=== PATIENT | female | born 1990 | race Caucasian/White ===

== ENCOUNTER 2020-04-16 06:07 | Inpatient (IN) | payer MEDICAID ==
[~2020-04-16] VITALS: Ht 152.4 cm; Wt 58.1 kg
[2020-04-16] MEDS ORDERED: D5%-LACTATED RINGERS 1,000 ML IV SCH (06:11)
[2020-04-16] MEDS ORDERED: OXYTOCIN 30U/ 0.9% NaCL 500ML 500 ML IV PRN (06:11)
[2020-04-16] MEDS ORDERED: OXYTOCIN 30U/ 0.9% NaCL 500ML 500 ML IV ONE (06:11)
[2020-04-16 06:17] VITALS: BP 95/51
[2020-04-16] MEDS ORDERED: NEWBORN KIT ONE (06:23)
[2020-04-16] MEDS ORDERED: PREN-3 PO (06:28)
[2020-04-16] MEDS ORDERED: IRON1TAB60 PO (06:29)
[2020-04-16] MEDS ORDERED: TERBUTALINE 1 MG/ML, 1ML IVPush PRN (06:30)
[2020-04-16] MEDS ORDERED: ONDANSETRON 2MG/ML, 2ML IVPush PRN (06:30)
[2020-04-16] MEDS ORDERED: TERBUTALINE 1 MG/ML, 1ML SQ PRN (06:30)
[2020-04-16] MEDS ORDERED: FENTANYL PF 100 MCG/2ML IVPush PRN (06:30)
[2020-04-16] MEDS ORDERED: FENTANYL PF 100 MCG/2ML IV PRN (06:30)
[2020-04-16] MEDS ORDERED: ALUMINUM/MAG/SIMETHICONE 30 ML UDC PO PRN (06:30)
[2020-04-16 06:40] LABS: BASOPHILS # (AUTO) 0.05 x10^3/uL (0-0.1); BASOPHILS % (AUTO) 1 % (0-1); EOSINOPHILS # (AUTO) 0.07 x10^3/uL (0-0.4); EOSINOPHILS % (AUTO) 1 % (1-7); LYMPHOCYTES # (AUTO) 1.69 x10^3/uL (1-3.4); LYMPHOCYTES % (AUTO) 20 % (22-44); MD NO; MEAN CORPUSCULAR HEMOGLOBIN 26.3 pg (27.0-34.8); MEAN CORPUSCULAR HGB CONC 32.2 g/dL (32.4-35.8); MEAN CORPUSCULAR VOLUME 81.8 fL (80-100); MEAN PLATELET VOLUME 8.4 fL (7.4-10.4); MONOCYTES # (AUTO) 0.48 x10^3/uL (0.2-0.8); MONOCYTES % (AUTO) 6 % (2-9); NEUTROPHILS % (AUTO) 73 % (42-75); PLATELET COUNT 300 x10^3/uL (130-400); RED BLOOD COUNT 4.18 x10^6/uL (3.82-5.3)
[2020-04-16] MEDS: LACTATED RINGERS 1,000 ML IV SCH ×2 (07:04→19:09)
[2020-04-16] MEDS ORDERED: FENTANYL PF 100 MCG/2ML ONE (19:42)
[2020-04-16] MEDS ORDERED: OXYcodone/APAP 5/325MG TABLET ONE (20:53)
[2020-04-16] MEDS ORDERED: OXYTOCIN 30U/ 0.9% NaCL 500ML 500 ML ONE (20:54)
[2020-04-16] MEDS: OXYcodone/APAP 5/325MG TABLET PO PRN (20:55)
[2020-04-16] MEDS: OXYTOCIN 30U/ 0.9% NaCL 500ML 500 ML IV SCH (20:56)
[2020-04-16] MEDS ORDERED: METHYLERGONOVINE 0.2 MG/ML IM PRN (21:00)
[2020-04-16] MEDS ORDERED: DIPH,PERTUSS(ACELL),TET VAC/PF NC IM-VACC PRN (21:00)
[2020-04-16] MEDS ORDERED: ACETAMINOPHEN 325 MG TABLET PO PRN ×2 (21:00)
[2020-04-16] MEDS ORDERED: SIMETHICONE 80 MG CHEW TAB PO PRN (21:00)
[2020-04-16] MEDS ORDERED: OXYcodone/APAP 5/325MG TABLET PO PRN (21:00)
[2020-04-16] MEDS ORDERED: MISOPROSTOL 200 MCG TABLET PR PRN (21:00)
[2020-04-16] MEDS ORDERED: CARBOPROST TROMETHAMINE 250 MCG/ML, 1ML IM PRN (21:00)
[2020-04-17] MEDS: IBUPROFEN 600 MG TABLET PO PRN (01:48)
[2020-04-17] MEDS: OXYcodone/APAP 5/325MG TABLET PO PRN (01:49)
[2020-04-17 03:41] VITALS: BP 94/56
[2020-04-17 04:34] LABS: MEAN CORPUSCULAR HEMOGLOBIN 26.4 pg (27.0-34.8); MEAN CORPUSCULAR HGB CONC 32.2 g/dL (32.4-35.8); MEAN CORPUSCULAR VOLUME 82.2 fL (80-100); MEAN PLATELET VOLUME 8.2 fL (7.4-10.4); PLATELET COUNT 305 x10^3/uL (130-400); RED BLOOD COUNT 4.09 x10^6/uL (3.82-5.3); RED CELL DISTRIBUTION WIDTH 15.4 % (9.6-15.2)
[2020-04-17 05:57] LABS: BASOPHILS # (AUTO) 0.16 x10^3/uL (0-0.1); BASOPHILS % (AUTO) 1 % (0-1); EOSINOPHILS # (AUTO) 0.01 x10^3/uL (0-0.4); EOSINOPHILS % (AUTO) 0 % (1-7); LYMPHOCYTES # (AUTO) 1.43 x10^3/uL (1-3.4); LYMPHOCYTES % (AUTO) 9 % (22-44); MD SCAN; MONOCYTES # (AUTO) 0.86 x10^3/uL (0.2-0.8); MONOCYTES % (AUTO) 5 % (2-9); NEUTROPHILS # (AUTO) 14.33 x10^3/uL (1.8-6.8); NEUTROPHILS % (AUTO) 85 % (42-75)
[2020-04-17] MEDS: OXYTOCIN 30U/ 0.9% NaCL 500ML 500 ML IV SCH ×2 (06:33→16:33)
[2020-04-17] MEDS: PRENATAL VIT/IRON/FA 1 EACH TABLET PO SCH (09:05)
[2020-04-17] MEDS: DOCUSATE 100 MG CAPSULE PO PRN (09:05)
[2020-04-17 09:15] VITALS: BP 100/64
[2020-04-17 12:30] VITALS: BP 96/61
[2020-04-17 16:30] VITALS: BP 100/65
[2020-04-17 19:15] VITALS: BP 103/68
[2020-04-18] MEDS: IBUPROFEN 600 MG TABLET PO PRN ×2 (00:12→08:14)
[2020-04-18] MEDS: OXYcodone/APAP 5/325MG TABLET PO PRN ×2 (00:56→08:14)
[2020-04-18] MEDS: PRENATAL VIT/IRON/FA 1 EACH TABLET PO SCH (08:14)
[2020-04-18] MEDS: DOCUSATE 100 MG CAPSULE PO PRN (08:14)
[2020-04-18] MEDS ORDERED: DOCU-131 PO (09:46)
[2020-04-18] MEDS ORDERED: IBUP-1222 PO (09:47)
[2020-04-18] MEDS ORDERED: OXYC-302 PO (09:47)
== END 2020-04-18 12:35 | disposition home or self-care (01) | DRG 807 ==
LOC: LDIP 06:07 → 2NW 21:53
PROVIDERS: ADMIT Obstetrics & Gynecology Maternal & Fetal Medicine; ATTEND Obstetrics & Gynecology Maternal & Fetal Medicine
PROC: 10E0XZZ Delivery of Products of Conception, External Approach (ICD-10-PCS; principal; 2020-04-16)
PROC: 3E033VJ Introduction of Other Hormone into Peripheral Vein, Percutaneous Approach (ICD-10-PCS; 2020-04-16)
DX: O80 Encounter for full-term uncomplicated delivery (principal); Z37.0 Single live birth; Z3A.37 37 weeks gestation of pregnancy
CPT/HCPCS: 36415; 85025; 86592; 86850; 86900; 87635; G0378; J3010; J2590; J7120